=== PATIENT | female | born 1995 | race Caucasian/White ===

== ENCOUNTER 2019-09-14 18:19 | Emergency (ER) | payer SELFPAY ==
[~2019-09-14] VITALS: Ht 165.1 cm; Wt 96.0 kg
--- NOTE | 2019-09-14 18:22 | PHYS DOC ---
Past History Smoking: Non-smoker General Adult HPI: HPI: ".. I woke up with this painful, numb Lt arm.. it seems to be localized to my bicep muscle area...". " Its been there all day... 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 I don't really lift stuff... ".." I don't think I slept wrong... " Patient is a 24 year old female who presents with above hx and complaints left bicep pain. Patient describes the pain is somewhat numbing. Patient is right- hand dominant. Distal neurovascular intact in both hands and equal. Distal vibratory 128 equal in both hands. Discomfort is localized to bicep muscle group. No history of previous cardiac disorders. No history of cardiac disorders in her age group in her family. No specific history of trauma. Patient does not think she slept on it wrong. No history of coagulopathy with her family members. Patient has not had this symptom before. Patient does have deltoid sensation left shoulder which is equal to right shoulder. No history of recent travel outside [facility]. No history immunosuppression. Review of Systems: Review of Systems: Constitutional: Denies fever or chills Eyes: Denies change in visual acuity HENT: Denies nasal congestion or sore throat Respiratory: Denies cough or shortness of breath Cardiovascular: Denies chest pain or edema GI: Denies abdominal pain, nausea, vomiting, bloody stools or diarrhea : Denies dysuria Musculoskeletal: Denies back pain or joint pain Complaints of Lt bicep muscle pain and numbness Integument: Denies rash Neurologic: Denies headache, focal weakness or sensory changes Endocrine: Denies polyuria or polydipsia Lymphatic: Denies swollen glands Psychiatric: Denies depression or anxiety Heart Score: HEART Score for Chest Pain: HEART Score for Chest Pain Response (Comments) Value History Slighlty/Non-Suspicious 0 ECG Normal 0 Age < 45 0 Risk Factors No Risk Factors 0 Total 0 Risk Factors: Risk Factors: DM, Current or recent (<one month) smoker, HTN, HLP, family history of CAD, obesity. Risk Scores: Score 0 - 3: 2.5% MACE over next 6 weeks - Discharge Home Score 4 - 6: 20.3% MACE over next 6 weeks - Admit for Clinical Observation Score 7 - 10: 72.7% MACE over next 6 weeks - Early Invasive Strategies Family History: Family History: Noncontributory to presentation Current Medications: Current Meds: See nursing for home medications Allergies: Allergies: No known drug allergies Physical Exam: PE: Constitutional: , no acute distress, non-toxic appearance. [] HENT: Normocephalic, atraumatic, bilateral external ears normal, oropharynx moist, no oral exudates, nose normal. [] Eyes: PERRLA, EOMI, conjunctiva normal, no discharge. [] Neck: Normal range of motion, no tenderness, supple, no stridor. Than 17 inches circumference Cardiovascular: Tachycardia heart rate regular rhythm, no murmur [] Lungs & Thorax: Bilateral breath sounds equal at apex auscultation [] Abdomen: Bowel sounds normal, soft, no tenderness, no masses, no pulsatile masses. [Obese Skin: Warm, dry, no erythema, no rash. [] Back: No tenderness, no CVA tenderness. [] Extremities: No tenderness, no cyanosis, no clubbing, ROM intact, no edema. No cording appreciated. Neurologic: Alert and oriented X 3, normal motor function, normal sensory function, no focal deficits noted. Distal vibratory of 128 tuning fork equal in all limbs. Psychologic: Affect anxious , judgement normal, mood normal. [] EKG: EKG: My interpretation of EKG shows a sinus rhythm at 96 bpm. No findings of acute STEMI of contralateral changes. [] Radiology/Procedures: Radiology/Procedures: [][place] [id number] IMAGING REPORT Signed PATIENT: AJIT VIERA ACCOUNT: [id number] : 1995 LOCATION: ER AGE: 24 SEX: F EXAM STATUS: REG ER ORD. PHYSICIAN: ISMA ARANDA MD REASON: atypical chest pain, Lt. arm PROCEDURE: PORTABLE CHEST 1V PORTABLE CHEST 1V Clinical History: Reason: atypical chest pain, Lt. arm / Spl. Instructions: / History: Technique: AP view of the chest was obtained at 09/14/2019 6:47 PM. Comparison: None. Findings: The cardiomediastinal silhouette is normal. The pulmonary vasculature is normal. The lungs and pleural margins are clear. Impression: No evidence of an acute cardiopulmonary process. Electronically signed by: Trever Leal III, MD (09/14/2019 7:50 PM) [id number] DICTATED AND SIGNED BY: TREVER LEAL III, MD DATE: 09/14/191949 CC: ISMA ARANDA MD; PCP,NO ~ Course & Med Decision Making: Course & Med Decision Making Pertinent Labs and Imaging studies reviewed. (See chart for details) Take Tylenol and ibuprofen for pain. Ice packs as needed. Follow-up primary care. Return if any concerns. Impression: 1. Muscle skeletal pain 2. Mild Hypokalemia 3. Elevated AST 41/ Alt. 78 [] Dragon Disclaimer: Dragon Disclaimer: This electronic medical record was generated, in whole or in part, using a voice recognition dictation system. Departure Departure: Disposition: 01 HOME/RESIDENCE PRIOR TO ADM Condition: STABLE Referrals: PCP,NO (PCP) Dragon Disclaimer This chart was dictated in whole or in part using Voice Recognition software in a busy, high-work load, and often noisy Emergency Department environment. It may contain unintended and wholly unrecognized errors or omissions. Dragon Disclaimer This chart was dictated in whole or in part using Voice Recognition software in a busy, high-work load, and often noisy Emergency Department environment. It may contain unintended and wholly unrecognized errors or omissions. ISMA ARANDA MD Sep 14, 2019 18:22
[2019-09-14] MEDS ORDERED: IV RINGERS SOLUTION,LACTATED 1,000 ML IV SCH (18:47)
[2019-09-14] MEDS ORDERED: ASPIRIN CHEWABLE 81 MG TABLET. PO ONE (19:00)
[2019-09-14] MEDS ORDERED: ASPIRIN CHEWABLE 81 MG TABLET. ONE (19:35)
[2019-09-14 19:48] LABS: BASO % 0 % (0-3); EOS # 0.1 x10^3/uL (0.0-0.7); EOS % 1 % (0-3); HEMATOCRIT 38.9 % (36.0-47.0); HEMOGLOBIN 13.1 g/dL (12.0-15.5); LYMPH # 0.9 x10^3/uL (1.0-4.8); LYMPH % 10 % (24-48); MEAN CORPUSCULAR HEMOGLOBIN 33 pg (25-35); MEAN CORPUSCULAR HGB CONC 34 g/dL (31-37); MEAN CORPUSCULAR VOLUME 99 fL (79-100); MONO # 0.4 x10^3/uL (0.0-1.1); MONO % 5 % (0-9); NEUT # 7.5 x10^3uL (1.8-7.7); NEUT % 84 % (31-73); PLATELET COUNT 256 x10^3/uL (140-400); RED BLOOD COUNT 3.92 x10^6/uL (3.50-5.40); RED CELL DISTRIBUTION WIDTH 14.2 % (11.5-14.5)
--- NOTE | 2019-09-14 19:53 | RAD ---
PORTABLE CHEST 1V Clinical History: Reason: atypical chest pain, Lt. arm / Spl. Instructions: / History: Technique: AP view of the chest was obtained at 09/14/2019 6:47 PM. Comparison: None. Findings: The cardiomediastinal silhouette is normal. The pulmonary vasculature is normal. The lungs and pleural margins are clear. Impression: No evidence of an acute cardiopulmonary process. Electronically signed by: Trever Eastman III, MD (09/14/2019 7:50 PM) [id number]
[2019-09-14 19:54] LABS: BILIRUBIN,URINE NEG (NEG); CLARITY,URINE CLEAR; COLOR,URINE YELLOW; GLUCOSE,URINE NEG (NEG)
[2019-09-14 19:55] LABS: BARBITURATES NEG (NEG); BENZODIAZEPINES NEG (NEG); CANNABINOIDS NEG (NEG); COCAINE NEG (NEG); METHADONE NEG (NEG); NITRITE,URINE NEG (NEG); OPIATES NEG (NEG); PHENCYCLIDINE NEG (NEG); UROBILINOGEN,URINE 0.2 mg/dL (0.2 mg/dL)
[2019-09-14 19:57] LABS: BACTERIA,URINE FEW /HPF (0-FEW); SQUAMOUS EPITHELIAL CELL,UR FEW /LPF; WBC,URINE 0 /HPF (0-4)
[2019-09-14 19:58] LABS: CALCIUM 8.7 mg/dL (8.5-10.1); CREATININE 0.9 mg/dL (0.6-1.0); GFR 78.3; POTASSIUM 3.2 mmol/L (3.5-5.1)
[2019-09-14 19:59] LABS: RBC,URINE RARE /HPF (0-2)
[2019-09-14 20:01] LABS: AMPHETAMINE/METHAMPHETAMINE NEG (NEG)
[2019-09-14 20:10] LABS: ALBUMIN 4.3 g/dL (3.4-5.0); DIRECT BILIRUBIN 0.1 mg/dL (0.0-0.2); MAGNESIUM 1.8 mg/dL (1.8-2.4); TOTAL BILIRUBIN 0.4 mg/dL (0.2-1.0); TOTAL PROTEIN 8.3 g/dL (6.4-8.2)
[2019-09-14] MEDS ORDERED: KETOROLAC 30 MG/ML VIAL. IVP ONE (20:30)
[2019-09-14] MEDS ORDERED: POTASSIUM CHLORIDE 20 MEQ TABLET.ER. PO ONE ×2 (20:30→20:45)
[2019-09-14 20:45] VITALS: BP 159/78
[2019-09-14] MEDS ORDERED: KETOROLAC 30 MG/ML VIAL. ONE (20:45)
--- NOTE | 2019-09-15 06:45 | EKG ---
[address] [address] Test Date: 2019-09-14 Test Time: 18:53:58 Pat Name: AJIT VIERA Department: Room: Gender: F Ophthalmic Tech: : 1995 Requested By: ISMA ARANDA Order Number: [id number] Reading MD: Measurements Intervals [place] Rate: P: WI: QRS: QRSD: T: QT: QTc: Interpretive Statements
[2019-09-15 20:51] LABS: THYROID STIM HORMONE (TSH) 0.9 uIU/mL (0.358-3.740)
== END 2019-09-14 21:01 | disposition home or self-care (01) ==
LOC: ER 18:19
DX: M79.18 Myalgia, other site (principal); M25.512 Pain in left shoulder; E87.6 Hypokalemia; R74.8 Abnormal levels of other serum enzymes
CPT/HCPCS: 36415; 71045; 80048; 80061; 80076; 80307; 81001; 81025; 82550; 83735; 83880; 84443; 84484; 85025; 85379; 85610; 85730; 86705; 86709; 86803; 87340; 93005; 96374; 99285; J1885; J7120

== ENCOUNTER 2019-11-25 21:08 | Emergency (ER) | payer SELFPAY ==
[~2019-11-25] VITALS: Ht 165.1 cm; Wt 96.0 kg
[2019-11-25 21:22] VITALS: BP 135/71
[2019-11-25 21:58] LABS: BILIRUBIN,URINE NEG (NEG); CLARITY,URINE CLEAR; COLOR,URINE YELLOW; GLUCOSE,URINE NEG (NEG); NITRITE,URINE NEG (NEG); UROBILINOGEN,URINE 0.2 mg/dL (0.2 mg/dL)
[2019-11-25 21:59] LABS: BACTERIA,URINE 0 /HPF (0-FEW); SQUAMOUS EPITHELIAL CELL,UR OCC /LPF; WBC,URINE OCC /HPF (0-4)
--- NOTE | 2019-11-25 22:19 | PHYS DOC ---
Past History Past Medical History: No Pertinent History Past Surgical History: No Surgical History Smoking: Non-smoker Alcohol Use: None General Adult EDM: Chief Complaint: TEST HPI: HPI: Patient is a [age] year old [sex] who presents with [] Review of Systems: Review of Systems: Constitutional: Denies fever or chills Eyes: Denies change in visual acuity HENT: Denies nasal congestion or sore throat Respiratory: Denies cough or shortness of breath Cardiovascular: Denies chest pain or edema GI: Denies abdominal pain, nausea, vomiting, bloody stools or diarrhea : Denies dysuria Musculoskeletal: Denies back pain or joint pain Integument: Denies rash Neurologic: Denies headache, focal weakness or sensory changes Endocrine: Denies polyuria or polydipsia Lymphatic: Denies swollen glands Psychiatric: Denies depression or anxiety Heart Score: Risk Factors: Risk Factors: DM, Current or recent (<one month) smoker, HTN, HLP, family history of CAD, obesity. Risk Scores: Score 0 - 3: 2.5% MACE over next 6 weeks - Discharge Home Score 4 - 6: 20.3% MACE over next 6 weeks - Admit for Clinical Observation Score 7 - 10: 72.7% MACE over next 6 weeks - Early Invasive Strategies Physical Exam: PE: Constitutional: Well developed, well nourished, no acute distress, non-toxic appearance. [] HENT: Normocephalic, atraumatic, bilateral external ears normal, oropharynx moist, no oral exudates, nose normal. [] Eyes: PERRLA, EOMI, conjunctiva normal, no discharge. [] Neck: Normal range of motion, no tenderness, supple, no stridor. [] Cardiovascular:Heart rate regular rhythm, no murmur [] Lungs & Thorax: Bilateral breath sounds clear to auscultation [] Abdomen: Bowel sounds normal, soft, no tenderness, no masses, no pulsatile masses. [] Skin: Warm, dry, no erythema, no rash. [] Back: No tenderness, no CVA tenderness. [] Extremities: No tenderness, no cyanosis, no clubbing, ROM intact, no edema. [] Neurologic: Alert and oriented X 3, normal motor function, normal sensory function, no focal deficits noted. [] Psychologic: Affect normal, judgement normal, mood normal. [] Current Patient Data: Labs: Laboratory Tests Test 11/25/19 21:20 11/25/19 21:32 Urine Collection Type Unknown Urine Color Yellow Urine Clarity Clear Urine pH 6.0 Urine Specific [place] 1.025 Urine Protein Neg (NEG-TRACE) Urine Glucose (UA) Neg mg/dL (NEG) Urine Ketones (Stick) Neg mg/dL (NEG) Urine Blood Small (NEG) Urine Nitrite Neg (NEG) Urine Bilirubin Neg (NEG) Urine Urobilinogen Dipstick 0.2 mg/dL (0.2 mg/dL) Urine Leukocyte Esterase Neg (NEG) Urine RBC 6-10 /HPF (0-2) Urine WBC Occ /HPF (0-4) Urine Squamous Epithelial Cells Occ /LPF Urine Bacteria 0 /HPF (0-FEW) POC Urine HCG, Qualitative hcg negative (Negative) Vital Signs: Vital Signs Date Time Temp Pulse Resp B/P (MAP) Pulse Ox O2 Delivery O2 Flow Rate FiO2 11/25/19 21:22 98.1 87 20 135/71 (92) 98 Room Air EKG: EKG: [] Radiology/Procedures: Radiology/Procedures: [] Course & Med Decision Making: Course & Med Decision Making Pertinent Labs and Imaging studies reviewed. (See chart for details) [] Dragon Disclaimer: Dragon Disclaimer: This electronic medical record was generated, in whole or in part, using a voice recognition dictation system. Departure Departure: Impression: Primary Impression: Abdominal pain Qualified Codes: R10.9 - Unspecified abdominal pain Additional Impression: test negative Disposition: HOME/RESIDENCE PRIOR TO ADM Condition: STABLE Referrals: PCP,NO (PCP) Patient Instructions: Abdominal Pain (Nonspecific) Justification of Admission: Justification of Admission: Justification of Admission Dx: N/A INDIO BARRIOS DO Nov 25, 2019 22:19
== END 2019-11-25 22:30 | disposition home or self-care (01) ==
LOC: ER 21:08
DX: Z32.02 Encounter for pregnancy test, result negative (principal); R10.9 Unspecified abdominal pain
CPT/HCPCS: 81001; 81025; 99283

== ENCOUNTER 2020-01-27 09:00 | Emergency (ER) | payer SELFPAY ==
[~2020-01-27] VITALS: Ht 162.6 cm; Wt 95.9 kg
[2020-01-27 09:21] VITALS: BP 146/78
--- NOTE | 2020-01-27 09:27 | PHYS DOC ---
Past History Past Medical History: No Pertinent History Past Surgical History: No Surgical History Smoking: Non-smoker Alcohol Use: None Drug Use: None General Adult EDM: Chief Complaint: SORE THROAT HPI: HPI: 25-year-old female coming in for upper respiratory complaints. Says she is congested and having yellow rhinorrhea, complaining of sore throat and mild nausea. Denies cough, headaches, vomiting, diarrhea or fevers. Has not tried any uzyg-rku-cmrztoa medications prior to arrival. Denies history of seasonal allergies, has history of strep pharyngitis. Review of Systems: Review of Systems: Constitutional: Denies fever or chills Eyes: Denies change in visual acuity HENT: Nasal congestion and sore throat Respiratory: Denies cough or shortness of breath Cardiovascular: Denies chest pain or edema GI: Denies abdominal pain, vomiting, bloody stools or diarrhea : Denies dysuria Musculoskeletal: Denies back pain or joint pain Integument: Denies rash Neurologic: Denies headache, focal weakness or sensory changes Endocrine: Denies polyuria or polydipsia Lymphatic: Denies swollen glands Psychiatric: Denies depression or anxiety Heart Score: Risk Factors: Risk Factors: DM, Current or recent (<one month) smoker, HTN, HLP, family history of CAD, obesity. Risk Scores: Score 0 - 3: 2.5% MACE over next 6 weeks - Discharge Home Score 4 - 6: 20.3% MACE over next 6 weeks - Admit for Clinical Observation Score 7 - 10: 72.7% MACE over next 6 weeks - Early Invasive Strategies Allergies: Allergies: Allergies Coded Allergies Type Severity Reaction Last Updated Verified No Known Drug Allergies 01/27/20 No Physical Exam: PE: Constitutional: Well developed, well nourished, no acute distress, non-toxic appearance. [] HENT: Normocephalic, atraumatic, bilateral external ears normal, oropharynx moist, no oral exudates, nose normal. [] Eyes: PERRLA, EOMI, conjunctiva normal, no discharge. [] Neck: Normal range of motion, no tenderness, supple, no stridor. [] Cardiovascular:Heart rate regular rhythm, no murmur [] Lungs & Thorax: Bilateral breath sounds clear to auscultation [] Abdomen: Bowel sounds normal, soft, no tenderness, no masses, no pulsatile masses. [] Skin: Warm, dry, no erythema, no rash. [] Back: No tenderness, no CVA tenderness. [] Extremities: No tenderness, no cyanosis, no clubbing, ROM intact, no edema. [] Neurologic: Alert and oriented X 3, normal motor function, normal sensory function, no focal deficits noted. [] Psychologic: Affect normal, judgement normal, mood normal. [] EKG: EKG: [] Radiology/Procedures: Radiology/Procedures: [] Course & Med Decision Making: Course & Med Decision Making Pertinent Labs and Imaging studies reviewed. (See chart for details) [] Dragon Disclaimer: Dragon Disclaimer: This electronic medical record was generated, in whole or in part, using a voice recognition dictation system. Departure Departure: Disposition: 01 DC HOME SELF CARE/HOMELESS Condition: STABLE Referrals: PCP,NO (PCP) Patient Instructions: Upper Respiratory Infection, Adult, [id number] Additional Instructions: Treat with ueqo-lxw-echyrif decongestants and cold medications such as Mucinex and increase water intake. Scripts Azelastine Hcl (AZELASTINE HCL) 137 Mcg/0.137 Ml [place].pump 2 SPR NS BID for congestion for 30 Days, #30 ML 0 Refills Prov: CHRISTINE AMBROCIO MD 01/27/20 CHRISTINE AMBROCIO MD Jan 27, 2020 09:27
[2020-01-27] MEDS ORDERED: AZEL137S3 NS (09:41)
== END 2020-01-27 09:57 | disposition home or self-care (01) ==
LOC: ER 09:00
DX: J02.9 Acute pharyngitis, unspecified (principal); R09.81 Nasal congestion; R09.89 Other specified symptoms and signs involving the circulatory and respiratory systems; R11.0 Nausea
CPT/HCPCS: 87070; 87880; 99283

== ENCOUNTER 2020-06-12 07:59 | Emergency (ER) | payer SELFPAY ==
[~2020-06-12] VITALS: Ht 165.1 cm; Wt 98.5 kg
[~2020-06-12 07:59] MED LIST: AZEL137S3 NS
--- NOTE | 2020-06-12 08:50 | PHYS DOC ---
Past History Past Medical History: No Pertinent History Past Surgical History: No Surgical History Smoking: Non-smoker Alcohol Use: None Drug Use: None General Adult EDM: Chief Complaint: ABDOMINAL PAIN HPI: HPI: Patient is a 25-year-old female complaining of rectal and low abdominal pain. Patient states it happened about 2 or 3 days ago while she was sitting. Patient denies any history of straining with bowel movements but says she has had to since. Denies any blood. Also has been having yellowish vaginal discharge. Denies any dysuria, hematuria, dyspareunia, nausea, or vomiting. Patient states she usually has regular periods with her last menstrual cycle was over a month ago. Patient denies any recent illness, fevers, unintentional weight loss, appetite changes. Requesting to be tested for STDs. Review of Systems: Review of Systems: All other systems within normal limits except for as noted in the HPI Allergies: Allergies: Allergies Coded Allergies Type Severity Reaction Last Updated Verified No Known Drug Allergies 01/27/20 No Physical Exam: PE: Constitutional: Well developed, well nourished, no acute distress, non-toxic appearance. [] HENT: Normocephalic, atraumatic, bilateral external ears normal, nose normal. [] Eyes: PERRLA, conjunctiva normal, no discharge. [] Neck: No rigidity, supple, no stridor. [] Cardiovascular: Regular rate and rhythm, brisk cap refill [] Lungs & Thorax: Non labored symmetric respirations, no tachypnea or respiratory distress [] Abdomen: Soft, nondistended, no abdominal tenderness : Normal external vaginal exam, moderate amount of yellow discharge, cervix unremarkable. Rectal exam no bleeding or open wounds, 1 nonthrombosed external hemorrhoid. Skin: Warm, dry, no erythema, no rash. [] Back: Unremarkable Extremities: No deformities, range of motion grossly intact, no lower extremity edema [] Neurologic: Alert and oriented X 3, no focal deficits noted. [] Psychologic: Affect normal, judgement normal, mood normal. [] Current Patient Data: Labs: Laboratory Tests Test 06/12/20 08:27 POC Urine HCG, Qualitative hcg negative (Negative) Vital Signs: Vital Signs Date Time Temp Pulse Resp B/P (MAP) Pulse Ox O2 Delivery O2 Flow Rate FiO2 06/12/20 08:20 98.1 92 16 144/73 (96) 98 Room Air EKG: EKG: [] Radiology/Procedures: Radiology/Procedures: CT ABDOMEN+PELVIS W History: low abd pain Comparison: None. Technique: After administration of intravenous contrast, helical CT of the abdomen and pelvis was performed from the lung bases through the ischial tuberosities. Coronal and sagittal reconstructions were obtained. 75 mL of Omnipaque 300 were used. One or more of the following dose reduction techniques were utilized: Automated exposure control (AEC), Adjustment of mA and/or kV according to patient size, Use of iterative reconstruction technique such as ASiR, CT scan done according to ALARA and image gently/image wisely Abdomen Findings: The visualized lung bases are clear. The liver, pancreas, spleen, and bilateral adrenal glands are normal. Cholelithiasis. Symmetric renal enhancement. There is no focal renal mass. There is no hydronephrosis. The visualized loops of small bowel are normal. The visualized loops of large martínez wel are normal. There is no evidence of bowel obstruction. Appendix is normal. There is no free fluid. There is no mesenteric or retroperitoneal adenopathy. The abdominal aorta is normal in caliber. Pelvis Findings: Urinary bladder is normal. Uterus and ovaries are present. Probable right adnexal corpus luteal cyst. No pelvic free fluid. There is no pelvic or inguinal adenopathy. There is no acute bony abnormality. IMPRESSION: 1. No acute findings. 2. Cholelithiasis.[] Heart Score: Risk Factors: Risk Factors: DM, Current or recent (<one month) smoker, HTN, HLP, family history of CAD, obesity. Risk Scores: Score 0 - 3: 2.5% MACE over next 6 weeks - Discharge Home Score 4 - 6: 20.3% MACE over next 6 weeks - Admit for Clinical Observation Score 7 - 10: 72.7% MACE over next 6 weeks - Early Invasive Strategies Course & Med Decision Making: Course & Med Decision Making Pertinent Labs and Imaging studies reviewed. (See chart for details) Wet prep negative for yeast, trichomonas, clue cells. Few RBCs and many white blood cells present [] Dragon Disclaimer: Dragon Disclaimer: This electronic medical record was generated, in whole or in part, using a voice recognition dictation system. Departure Departure: Impression: Primary Impression: Hemorrhoid Additional Impression: Concern about STD in female without diagnosis Disposition: 01 DC HOME SELF CARE/HOMELESS Condition: STABLE Referrals: PCP,NO (PCP) Patient Instructions: Hemorrhoids Additional Instructions: Refrain from sexual activity until STD test results return. Use stool softeners and [id number] Tucks medicated pads for hemorrhoids and rectal pain. [facility] for primary care follow-up Address: [address] [place] [id number] CHRISTINE AMBROCIO MD Jun 12, 2020 08:50
[2020-06-12 09:35] LABS: BASO % 0 % (0-3); EOS # 0.1 x10^3/uL (0.0-0.7); EOS % 1 % (0-3); HEMATOCRIT 37.8 % (36.0-47.0); HEMOGLOBIN 12.5 g/dL (12.0-15.5); LYMPH # 1.8 x10^3/uL (1.0-4.8); LYMPH % 24 % (24-48); MEAN CORPUSCULAR HEMOGLOBIN 32 pg (25-35); MEAN CORPUSCULAR HGB CONC 33 g/dL (31-37); MEAN CORPUSCULAR VOLUME 96 fL (79-100); MONO # 0.5 x10^3/uL (0.0-1.1); MONO % 7 % (0-9); NEUT # 5.1 x10^3uL (1.8-7.7); NEUT % 68 % (31-73); PLATELET COUNT 261 x10^3/uL (140-400); RED BLOOD COUNT 3.93 x10^6/uL (3.50-5.40); RED CELL DISTRIBUTION WIDTH 13.9 % (11.5-14.5); WHITE BLOOD COUNT 7.5 x10^3/uL (4.0-11.0)
[2020-06-12 09:42] LABS: LIPASE 101 U/L (73-393)
[2020-06-12 10:06] LABS: BACTERIA,URINE 0 /HPF (0-FEW); BILIRUBIN,URINE NEG (NEG); CLARITY,URINE HAZY; COLOR,URINE YELLOW; GLUCOSE,URINE NEG (NEG); NITRITE,URINE NEG (NEG); SQUAMOUS EPITHELIAL CELL,UR MANY /LPF; UROBILINOGEN,URINE 0.2 mg/dL (0.2 mg/dL); WBC,URINE 20-40 /HPF (0-4)
[2020-06-12] MEDS ORDERED: IOHEXOL 300 MG/ML 75 ML VIAL. IV ONE (10:15)
--- NOTE | 2020-06-12 11:02 | RAD ---
CT ABDOMEN+PELVIS W History: low abd pain Comparison: None. Technique: After administration of intravenous contrast, helical CT of the abdomen and pelvis was per formed from the lung bases through the ischial tuberosities. Coronal and sagittal reconstructions wer e obtained. 75 mL of Omnipaque 300 were used. One or more of the following dose reduction techniques were utilized: Automated exposure control (AEC), Adjustment of mA and/or kV according to patient size , Use of iterative reconstruction technique such as ASiR, CT scan done according to ALARA and image g ently/image wisely Abdomen Findings: The visualized lung bases are clear. The liver, pancreas, spleen, and bilateral adrenal glands are normal. Cholelithiasis. Symmetric renal enhancement. There is no focal renal mass. There is no hydronephrosis. The visualized loops of small bowel are normal. The visualized loops of large bowel are normal. There is no evidence of bowel obstruction. Appendix is normal. There is no free fluid. There is no mesenteric or retroperitoneal adenopathy. The abdominal aorta is normal in caliber. Pelvis Findings: Urinary bladder is normal. Uterus and ovaries are present. Probable right adnexal corpus luteal cyst. No pelvic free fluid. There is no pelvic or inguinal adenopathy. There is no acute bony abnormality. IMPRESSION: 1. No acute findings. 2. Cholelithiasis. Electronically signed by: Yunior Jensen MD (06/12/2020 11:00 AM) [id number]
[2020-06-12 11:43] VITALS: BP 121/73
[2020-06-13 20:37] LABS: CHLAMYDIA PROBE Negative (Negative)
== END 2020-06-12 11:58 | disposition home or self-care (01) ==
LOC: ER 07:59
DX: K64.8 Other hemorrhoids (principal); R10.30 Lower abdominal pain, unspecified; Z20.2 Contact with and (suspected) exposure to infections with a predominantly sexual mode of transmission
CPT/HCPCS: 36415; 74177; 81001; 81025; 82550; 83690; 85025; 86592; 86703; 87086; 87147; 87491; 87591; 99285; Q0111; Q9967

== ENCOUNTER 2021-01-27 00:31 | Emergency (ER) | payer SELFPAY ==
[~2021-01-27] VITALS: Ht 165.1 cm; Wt 103.6 kg
[2021-01-27 00:45] VITALS: BP 131/71
[2021-01-27 01:05] LABS: U PREG PATIENT NEGATIVE (NEG)
--- NOTE | 2021-01-27 01:06 | PHYS DOC ---
Past History Past Medical History: No Pertinent History Past Surgical History: No Surgical History Smoking: Non-smoker Alcohol Use: None Drug Use: None General Adult EDM: Chief Complaint: CONGESTION HPI: HPI: 26-year-old female presents with 2-day history of nasal congestion and sore throat. She was exposed to a sick contact that was positive for RSV but negative for Covid-19. She has had thick nasal drainage, but no fever or chills. She has been eating and drinking normally. She has some postnasal drip. She has no other specific complaints. She is concerned about COVID-19. She is not vaccinated. Review of Systems: Review of Systems: Constitutional: Denies fever or chills Eyes: Denies change in visual acuity HENT: Nasal congestion and mild sore throat Respiratory: Denies cough or shortness of breath Cardiovascular: Denies chest pain or edema GI: Denies abdominal pain, nausea, vomiting, bloody stools or diarrhea : Denies dysuria Musculoskeletal: Denies back pain or joint pain Integument: Denies rash Neurologic: Denies headache, focal weakness or sensory changes Endocrine: Denies polyuria or polydipsia Lymphatic: Denies swollen glands Psychiatric: Denies depression or anxiety Allergies: Allergies: Allergies Coded Allergies Type Severity Reaction Last Updated Verified No Known Drug Allergies 01/27/21 No Physical Exam: PE: Constitutional: Well developed, well nourished, obese, no acute distress, non- toxic appearance. [] HENT: Normocephalic, atraumatic, bilateral external ears normal, oropharynx moist without tonsillar exudates, nose congested [] Eyes: PERRLA, EOMI, conjunctiva normal, no discharge. [] Neck: Normal range of motion, no tenderness, supple, no stridor. [] Cardiovascular: Heart rate regular rhythm, no murmur [] Lungs & Thorax: Bilateral breath sounds clear to auscultation [] Abdomen: Bowel sounds normal, soft, no tenderness, no masses, no pulsatile masses. [] Skin: Warm, dry, no erythema, no rash. [] Back: No tenderness, no CVA tenderness. [] Extremities: No tenderness, no cyanosis, no clubbing, ROM intact, no edema. [] Neurologic: Alert and oriented X 3, normal motor function, normal sensory function, no focal deficits noted. [] Psychologic: Affect normal, judgement normal, mood normal. [] Current Patient Data: Vital Signs: Vital Signs Date Time Temp Pulse Resp B/P (MAP) Pulse Ox O2 Delivery O2 Flow Rate FiO2 01/27/21 00:45 98.1 93 20 131/71 (91) 97 Room Air EKG: EKG: [] Radiology/Procedures: Radiology/Procedures: [] Heart Score: C/O Chest Pain: N/A Risk Factors: Risk Factors: DM, Current or recent (<one month) smoker, HTN, HLP, family history of CAD, obesity. Risk Scores: Score 0 - 3: 2.5% MACE over next 6 weeks - Discharge Home Score 4 - 6: 20.3% MACE over next 6 weeks - Admit for Clinical Observation Score 7 - 10: 72.7% MACE over next 6 weeks - Early Invasive Strategies Course & Med Decision Making: Course & Med Decision Making Pertinent Labs and Imaging studies reviewed. (See chart for details) We have tested the patient for COVID-19. This appears to be a viral illness of some type. I recommended that she stay isolated until she feels better. She should at least stay away from people until she gets her Covid results. I have advised supportive care for congestion such as Afrin or Mucinex. She is stable for discharge at this time. [] Keanu Disclaimer: Keanu Disclaimer: This electronic medical record was generated, in whole or in part, using a voice recognition dictation system. Departure Departure: Impression: Primary Impression: Nasal congestion Additional Impression: Viral syndrome Disposition: HOME / SELF CARE / HOMELESS Condition: STABLE Referrals: PCP,NO (PCP) Patient Instructions: Viral Syndrome SANDY ELMORE DO Jan 27, 2021 01:06
[2021-01-27 01:07] LABS: BILIRUBIN,URINE NEG (NEG); CLARITY,URINE CLEAR; COLOR,URINE YELLOW; GLUCOSE,URINE NEG (NEG); NITRITE,URINE NEG (NEG); UROBILINOGEN,URINE 0.2 mg/dL (0.2 mg/dL)
[2021-01-27 01:09] LABS: RBC,URINE RARE /HPF (0-2); WBC,URINE RARE /HPF (0-4)
[2021-01-27 01:10] LABS: BACTERIA,URINE 0 /HPF (0-FEW); SQUAMOUS EPITHELIAL CELL,UR FEW /LPF
== END 2021-01-27 01:27 | disposition home or self-care (01) ==
LOC: ER 00:31
DX: B34.9 Viral infection, unspecified (principal); Z20.822 Contact with and (suspected) exposure to COVID-19
CPT/HCPCS: 81001; 81025; 99283; C9803; U0003

== ENCOUNTER 2021-02-26 01:07 | Emergency (ER) | payer SELFPAY ==
[~2021-02-26] VITALS: Ht 165.1 cm; Wt 115.0 kg
[2021-02-26 01:07] VITALS: BP 136/70
--- NOTE | 2021-02-26 01:24 | PHYS DOC ---
Past History Past Medical History: No Pertinent History Past Surgical History: Tonsillectomy Smoking: Non-smoker Alcohol Use: None Drug Use: None General Adult EDM: Chief Complaint: SHORTNESS OF BREATH HPI: HPI: ".. I got COVID.. I tested + on wednesday... everyone in the house has COVID.,. I was to busy to get my vaccination.. now I really wish I had.. I feel terrible.. " .. " Hurt everywhere..." Patient is a 26 year old female who presents with hx of COVID + as of Wednesday02/21/2021. Patient complaining of increased dyspnea, myalgia, arthralgia, malaise, fever, chills, and coughing. Patient states every single person in the household has a positive Covid test nephews, aunt, mother, children... All have Covid. No one has gotten Covid vaccination. No recent travel. No specific past medical history other than seizures which have not reoccurred for a number of years. Patient has been running a fever but has not taken any Tylenol or ibuprofen. Patient states she is gotten more short of breath tonight. Patient was on control but pulled out her IUD. No history of coagulopathy with her family members. Review of Systems: Review of Systems: Constitutional: Complains of fever or chills Eyes: Denies change in visual acuity HENT: Denies nasal congestion or sore throat Respiratory: Complains of cough and shortness of breath Cardiovascular: Denies chest pain or edema GI: Denies abdominal pain, nausea, vomiting, bloody stools or diarrhea : Denies dysuria Musculoskeletal: Complains of generalized myalgia and arthralgia Integument: Denies rash Neurologic: Denies headache, focal weakness or sensory changes Endocrine: Denies polyuria or polydipsia Lymphatic: Denies swollen glands Psychiatric: Denies depression or anxiety Family History: Family History: Multiple family members in the household have become Covid positive-no one has been vaccinated Current Medications: Current Meds: See nursing for home meds Allergies: Allergies: Allergies Coded Allergies Type Severity Reaction Last Updated Verified No Known Drug Allergies 01/27/21 No Physical Exam: PE: Constitutional: Reports acute distress, non-toxic appearance. [] HENT: Normocephalic, atraumatic, bilateral external ears normal, oropharynx moist, no oral exudates, nose swollen turbinates and clear rhinorrhea. Postnasal drainage. Eyes: PERRLA, EOMI, conjunctiva normal, no discharge. [] Neck: Normal range of motion, no tenderness, supple, no stridor. [] Cardiovascular: Tachycardia heart rate regular rhythm, no murmur [] Lungs & Thorax: Bilateral breath sounds to apex with few scattered wheezes on auscultation [] Abdomen: Bowel sounds normal, soft, no tenderness, no masses, no pulsatile masses. Obese. Skin: Warm, dry, no erythema, no rash. [] Back: No tenderness, no CVA tenderness. [] Extremities: Generalized muscle tenderness, no cyanosis, no clubbing, ROM intact, trace ankle edema. [] Neurologic: Alert and oriented X 3, normal motor function, normal sensory function, no focal deficits noted. [] Psychologic: Affect anxious, judgement normal, mood normal. [] EKG: EKG: My interpretation EKG shows a sinus tachycardia 113 bpm. No findings acute STEMI with contralateral changes. Time of EKG is 143 hours [] Radiology/Procedures: Radiology/Procedures: [place] [address] IMAGING REPORT Signed PATIENT: AJIT VIERA ACCOUNT: [id number] : 1995 LOCATION: ER AGE: 26 SEX: F EXAM STATUS: REG ER ORD. PHYSICIAN: ISMA ARANDA MD REASON: dyspnea PROCEDURE: PORTABLE CHEST 1V XR CHEST 1V Clinical History: Reason: dyspnea / Spl. Instructions: COVID + Wednesday / History: Technique: AP view of the chest was obtained at 02/26/2021 1:32 AM. Comparison: September 14, 2019. Findings: The cardiomediastinal silhouette is normal. The pulmonary vasculature is normal. There are calcified granuloma on the right. There is vague peripheral patchy opacities bilaterally. Impression: Minimal pulmonary infiltrates could be early atypical pneumonia. Electronically signed by: Kirby Leal III, MD (02/26/2021 1:54 AM) [facility] DICTATED AND SIGNED BY: KIRBY LEAL III, MD DATE: 02/26/21152 CC: ISMA ARANDA MD; PCP,NO ~MTH0 0 [][place] [address] IMAGING REPORT Signed PATIENT: AJIT VIERA ACCOUNT: [id number] : 1995 LOCATION: ER AGE: 26 SEX: F EXAM STATUS: REG ER ORD. PHYSICIAN: ISMA ARANDA MD REASON: COVID + Jacoby, short of air, cough Omni 350 100cc PROCEDURE: CT ANGIOGRAPHY CHEST CTA Chest with contrast: Clinical History: Reason: COVID + Jacoby, short of air, cough Omni 350 100cc / Spl. Instructions: / History: Shortness of breath. Axial helical images of the chest were obtained after the administration of 100 cc of IV Isovue-370 and timed appropriately for a pulmonary arterial study. Conventional axial reconstruction was performed in addition to coronal, sagittal and bilateral oblique MIP (maximum intensity projection). This study was ordered to detect possible pulmonary embolism. There are no filling defects to suggest pulmonary embolism. There is patchy groundglass opacities in the periphery of the lungs bilaterally. There is multiple small hilar and mediastinal lymph nodes. There is no mediastinal or hilar lymphadenopathy. The thoracic aorta appears normal. Impression: 1. No evidence of pulmonary embolism. 2. Moderate bilateral pulmonary infiltrates likely Covid pneumonia. 3. Mild lymphadenopathy likely reactive. End impression PQRS Compliance Statement: One or more of the following individualized dose reduction techniques were utilized for this examination: 1. Automated exposure control 2. Adjustment of the mA and/or kV according to patient size 3. Use of iterative reconstruction technique Electronically signed by: Kirby Leal III, MD (02/26/2021 2:26 AM) [facility] DICTATED AND SIGNED BY: KIRBY LEAL III, MD DATE: 02/26/21223 CC: ISMA ARANDA MD; PCP,NO ~MTH0 0 Heart Score: C/O Chest Pain: N/A HEART Score for Chest Pain: HEART Score for Chest Pain Response (Comments) Value History Slighlty/Non-Suspicious 0 ECG Normal 0 Age < 45 0 Risk Factors No Risk Factors 0 Troponin < Normal Limit 0 Total 0 Risk Factors: Risk Factors: DM, Current or recent (<one month) smoker, HTN, HLP, family history of CAD, obesity. Risk Scores: Score 0 - 3: 2.5% MACE over next 6 weeks - Discharge Home Score 4 - 6: 20.3% MACE over next 6 weeks - Admit for Clinical Observation Score 7 - 10: 72.7% MACE over next 6 weeks - Early Invasive Strategies Course & Med Decision Making: Course & Med Decision Making Pertinent Labs and Imaging studies reviewed. (See chart for details) Pt. to self isolate. Wear mask when around others that covers your nose and mouth. Must push fluids. Take tylenol and ibuprofen for discomfort. Use MDI two puffs four times a day. Follow up with primary. Return if any concerns. Take Zithromax 250 day day. Take Eliquis 10 mg twice a day. Follow up with primary. Consider US of legs out pt. for DVT development. On follow up with primary discuss if they want to continue the Eliquis after 7 days. Call in AM if elects to complete US legs for DVT. Scheduled after 0800 Impression: 1. COVID =+ 02/21/2021 - No vaccination 2. Viral Syndrome 3. Hypokalemia 3.2 4. Dehydration 5. Elevated AST 115, and ALT 75 6. Elevated CK = 3943 7. Elevated D- Dimer 1.05 8. Covid Pneumonia [] Dragon Disclaimer: Dragon Disclaimer: This electronic medical record was generated, in whole or in part, using a voice recognition dictation system. Departure Departure: Referrals: PCP,NO (PCP) Scripts Apixaban (ELIQUIS) 5 Mg Tablet 10 MG PO twice a day for DVT for 7 Days, TAB Prov: ISMA ARANDA MD 02/26/21 Azithromycin (ZITHROMAX) 250 Mg Tablet 250 MG PO DAILY for ANTI-BIOTIC for 5 Days, #5 TAB 0 Refills Prov: ISMA ARANDA MD 02/26/21 [place] Disclaimer This chart was dictated in whole or in part using Voice Recognition software in a busy, high-work load, and often noisy Emergency Department environment. It may contain unintended and wholly unrecognized errors or omissions. ISMA ARANDA MD Feb 26, 2021 01:23
[2021-02-26] MEDS ORDERED: IV RINGERS SOLUTION,LACTATED 1,000 ML IV SCH (01:30)
[2021-02-26] MEDS ORDERED: ALBUTEROL SULFATE 8GM INHALER. INH ONE (01:30)
[2021-02-26] MEDS ORDERED: ACETAMINOPHEN 500 MG TABLET PO ONE (01:30)
[2021-02-26] MEDS ORDERED: ENOXAPARIN ** NOTE DOSE ** SYRINGE SQ ONE (01:30)
--- NOTE | 2021-02-26 01:57 | RAD ---
XR CHEST 1V Clinical History: Reason: dyspnea / Spl. Instructions: COVID + Wednesday / History: Technique: AP view of the chest was obtained at 02/26/2021 1:32 AM. Comparison: September 14, 2019. Findings: The cardiomediastinal silhouette is normal. The pulmonary vasculature is normal. There are calcified granuloma on the right. There is vague peripheral patchy opacities bilaterally. Impression: Minimal pulmonary infiltrates could be early atypical pneumonia. Electronically signed by: Trever Eastman III, MD (02/26/2021 1:54 AM) [facility]
[2021-02-26] MEDS ORDERED: CONTRAST GIVEN. MC PRN (02:00)
[2021-02-26] MEDS ORDERED: IOHEXOL 350 MG/ML 100 ML VIAL. IV ONE (02:00)
[2021-02-26 02:15] LABS: BASO % 0 % (0-3); EOS % 0 % (0-3); HEMATOCRIT 39.4 % (36.0-47.0); HEMOGLOBIN 13.2 g/dL (12.0-15.5); LYMPH # 0.9 x10^3/uL (1.0-4.8); LYMPH % 23 % (24-48); MEAN CORPUSCULAR HEMOGLOBIN 31 pg (25-35); MEAN CORPUSCULAR HGB CONC 34 g/dL (31-37); MEAN CORPUSCULAR VOLUME 94 fL (79-100); MONO # 0.2 x10^3/uL (0.0-1.1); MONO % 5 % (0-9); NEUT % 72 % (31-73); PLATELET COUNT 156 x10^3/uL (140-400); RED BLOOD COUNT 4.19 x10^6/uL (3.50-5.40); RED CELL DISTRIBUTION WIDTH 13.6 % (11.5-14.5); WHITE BLOOD COUNT 4.1 x10^3/uL (4.0-11.0)
[2021-02-26 02:25] LABS: CALCIUM 8.3 mg/dL (8.5-10.1); CREATININE 0.9 mg/dL (0.6-1.0); GFR 76.9; POTASSIUM 3.2 mmol/L (3.5-5.1)
--- NOTE | 2021-02-26 02:29 | RAD ---
CTA Chest with contrast: Clinical History: Reason: COVID + Wednesday, short of air, cough Omni 350 100cc / Spl. Instructions: / History: Shortness of breath. Axial helical images of the chest were obtained after the administration of 100 cc of IV Isovue-370 a nd timed appropriately for a pulmonary arterial study. Conventional axial reconstruction was perform ed in addition to coronal, sagittal and bilateral oblique MIP (maximum intensity projection). This s tudy was ordered to detect possible pulmonary embolism. There are no filling defects to suggest pulmonary embolism. There is patchy groundglass opacities in the periphery of the lungs bilaterally. There is multiple small hilar and mediastinal lymph nodes. There is no mediastinal or hilar lymphadenopathy. The thoracic aorta appears normal. Impression: 1. No evidence of pulmonary embolism. 2. Moderate bilateral pulmonary infiltrates likely Covid pneumonia. 3. Mild lymphadenopathy likely reactive. End impression PQRS Compliance Statement: One or more of the following individualized dose reduction techniques were utilized for this examinat ion: 1. Automated exposure control 2. Adjustment of the mA and/or kV according to patient size 3. Use of iterative reconstruction technique Electronically signed by: Trever Eastman III, MD (02/26/2021 2:26 AM) [facility]
[2021-02-26 02:40] LABS: ALBUMIN 3.8 g/dL (3.4-5.0); DIRECT BILIRUBIN 0.2 mg/dL (0.0-0.2); MAGNESIUM 2.1 mg/dL (1.8-2.4); TOTAL BILIRUBIN 0.4 mg/dL (0.2-1.0); TOTAL PROTEIN 7.7 g/dL (6.4-8.2)
[2021-02-26 03:03] LABS: BILIRUBIN,URINE NEG (NEG); CLARITY,URINE CLEAR; COLOR,URINE YELLOW; GLUCOSE,URINE NEG (NEG); NITRITE,URINE NEG (NEG); UROBILINOGEN,URINE 0.2 mg/dL (0.2 mg/dL)
[2021-02-26 03:04] LABS: BACTERIA,URINE 0 /HPF (0-FEW); BARBITURATES NEG (NEG); BENZODIAZEPINES NEG (NEG); CANNABINOIDS NEG (NEG); COCAINE NEG (NEG); METHADONE NEG (NEG); OPIATES NEG (NEG); PHENCYCLIDINE NEG (NEG); RBC,URINE OCC /HPF (0-2); SQUAMOUS EPITHELIAL CELL,UR MOD /LPF; WBC,URINE OCC /HPF (0-4)
[2021-02-26 03:05] LABS: AMPHETAMINE/METHAMPHETAMINE NEG (NEG)
[2021-02-26] MEDS ORDERED: AZITHROMYCIN 250 MG TABLET. PO ONE (03:15)
[2021-02-26] MEDS ORDERED: AZIT250T PO (03:18)
[2021-02-26] MEDS ORDERED: APIX5TAB3 PO (03:18)
--- NOTE | 2021-02-26 07:39 | EKG ---
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
== END 2021-02-26 03:49 | disposition home or self-care (01) ==
LOC: ER 01:07
DX: U07.1 COVID-19 (principal); J12.89 Other viral pneumonia; B34.9 Viral infection, unspecified; E87.6 Hypokalemia; E86.0 Dehydration; R79.89 Other specified abnormal findings of blood chemistry; R79.1 Abnormal coagulation profile; R74.8 Abnormal levels of other serum enzymes
CPT/HCPCS: 36415; 71045; 71275; 80048; 80076; 80307; 81001; 82550; 83735; 83880; 84484; 85025; 85379; 85610; 85730; 93005; 94640; 96360; 96361; 96372; 99285; J1650; J7120; Q9967; 94664

== ENCOUNTER 2021-04-06 08:21 | Emergency (ER) | payer SELFPAY ==
[~2021-04-06] VITALS: Ht 165.1 cm; Wt 102.3 kg
[~2021-04-06 08:21] MED LIST changes: +APIX5TAB3 PO; +AZIT250T PO
--- NOTE | 2021-04-06 08:32 | PHYS DOC ---
Past History Past Medical History: No Pertinent History Past Surgical History: Tonsillectomy Smoking: Non-smoker Alcohol Use: None Drug Use: None Adult General Chief Complaint Chief Complaint: ABDOMINAL PAIN HPI HPI Patient is a 26-year-old female presenting for abdominal pain. This is an acute on chronic problem. Reports she has had chronic abdominal pain for several years but reports it worsened yesterday evening. States it is generalized and focal to left upper quadrant and epigastric areas. Described as cramping. Nothing known makes better or worse. Timing of symptoms was inconsistent but reports has been more chronic this morning prompting her to come in for evaluation. She has no known medical issues, takes no medications on a daily basis, denies any tobacco alcohol or illicit drug abuse. She does admit she was seen here previously and had incidental finding of gallstones per CT imaging. She has been passing gas, last bowel movement was yesterday evening and unremarkable with no concerning changes and typical consistency, no dysuria. She does not have abdominal pain presently Review of Systems Review of Systems Fourteen body systems of review of systems have been reviewed. See HPI for pertinent positives and negative responses, other garay all other systems are negative, non-pertinent or non-contributory Allergies Allergies Allergies Coded Allergies Type Severity Reaction Last Updated Verified No Known Drug Allergies 01/27/21 No Physical Exam Physical Exam Constitutional: Well developed, well nourished, no acute distress, non-toxic appearance. HENT: Normocephalic, atraumatic, bilateral external ears normal, oropharynx moist, no oral exudates, nose normal. Eyes: PERRLA, EOMI, conjunctiva normal, no discharge. Neck: Normal range of motion, no tenderness, supple, no stridor. Cardiovascular: Heart rate regular, sinus rhythm, no murmurs rubs or gallops Lungs & Thorax: Bilateral breath sounds clear to auscultation Abdomen: Bowel sounds normal, soft, no tenderness, no masses, no pulsatile masses. Nonsurgical abdomen, no peritoneal signs Skin: Warm, dry, no erythema, no rash. Back: No tenderness, no CVA tenderness. Extremities: No tenderness, no cyanosis, no clubbing, ROM intact, no edema. Neurologic: Alert and oriented X 3, grossly normal motor & sensory function, no focal deficits noted. Psychologic: Affect normal, judgement normal, mood normal. Current Patient Data Vital Signs Vital Signs Date Time Temp Pulse Resp B/P (MAP) Pulse Ox O2 Delivery O2 Flow Rate FiO2 04/06/21 08:56 95 18 153/87 (109) 98 Vital Signs Date Time Temp Pulse Resp B/P (MAP) Pulse Ox O2 Delivery O2 Flow Rate FiO2 04/06/21 08:56 95 18 153/87 (109) 98 Lab Results Laboratory Tests Test 04/06/21 09:15 04/06/21 09:22 Urine Collection Type Unknown Urine Color Yellow Urine Clarity Clear Urine pH 6.0 Urine Specific [place] 1.025 Urine Protein Neg Urine Glucose (UA) Neg mg/dL Urine Ketones (Stick) Neg mg/dL Urine Blood Trace Urine Nitrite Neg Urine Bilirubin Neg Urine Urobilinogen Dipstick 0.2 mg/dL Urine Leukocyte Esterase Neg Urine RBC 1-2 /HPF Urine WBC Rare /HPF Urine Squamous Epithelial Cells Few /LPF Urine Bacteria 0 /HPF Bedside Urine HCG, Qualitative hcg negative Current Medications Medications (Trade) Dose Ordered Sig/Iqra Route PRN Reason Start Time Stop Time Status Last Admin Dose Admin Multi-Ingredient Mouthwash/Gargle (Gi Cocktail) 20 ml 1X ONCE PO 04/06/21 09:00 04/06/21 09:06 DC Pantoprazole Sodium (Protonix) 40 mg 1X ONCE PO 04/06/21 09:00 04/06/21 09:06 DC Metoclopramide HCl (Reglan) 10 mg 1X ONCE PO 04/06/21 09:30 04/06/21 09:32 DC EKG EKG [] Radiology/Procedures Radiology/Procedures [] Heart Score C/O Chest Pain: No Risk Factors: Risk Factors: DM, Current or recent (<one month) smoker, HTN, HLP, family history of CAD, obesity. Risk Scores: Risk Factors: DM, Current or recent (<one month) smoker, HTN, HLP, family history of CAD, obesity. Course & Med Decision Making Course & Med Decision Making ABCs unremarkable HPI and comprehensive physical exam nonconcerning for any emergent or surgical issues Patient had recent comprehensive work-up. Symptoms improved with provided ER intervention. I disclosed no indication for further diagnostic ER workup, intervention, or hospitalization at this time based on unremarkable physical exam Joint decision made to discharge home with supportive care practices and close PCP follow-up for further work-up as needed Dragon Disclaimer Dragon Disclaimer This electronic medical record was generated, in whole or in part, using a voice recognition dictation system. Departure Departure: Impression: Primary Impression: Abdominal pain Disposition: HOME / SELF CARE / HOMELESS Condition: STABLE Referrals: PCP,NO (PCP) Additional Instructions: You have been evaluated in the Emergency Department today for abdominal pain. Your evaluation was not suggestive of any emergent condition requiring medical intervention at this time. However, some abdominal problems make take more time to appear. Therefore, it is important for you to watch for any new symptoms or worsening of your current condition. As discussed prior to ER departure, close PCP follow-up is advise as repeat outpatient evaluation within upcoming 72 hours and consideration for GI consultation is recommended I discussed most likely diagnosis of GERD versus constipation and so, please avoid fatty and spicy foods and highly caffeinated beverages. You should also start taking a daily stool softener with increased fiber and good fluid intake Return to the Emergency Department if you experience worsening pain, persistent fevers greater than 100.4, recurrent vomiting, blood in vomit, blood in stool, dark tarry stool, chest pain, difficulty breathing, or any other concerning sym ptoms. KAIN BARRETO DO Apr 06, 2021 08:32
[2021-04-06 08:56] VITALS: BP 153/87
[2021-04-06] MEDS ORDERED: LIDO:MAALOX 1:1 20 ML SINGLE DOSE. PO ONE (09:00)
[2021-04-06] MEDS ORDERED: PANTOPRAZOLE 40 MG TABLET. PO ONE (09:00)
[2021-04-06] MEDS ORDERED: METOCLOPRAMIDE 10 MG TABLET PO ONE (09:30)
[2021-04-06 09:47] LABS: BACTERIA,URINE 0 /HPF (0-FEW); BILIRUBIN,URINE NEG (NEG); CLARITY,URINE CLEAR; COLOR,URINE YELLOW; GLUCOSE,URINE NEG (NEG); NITRITE,URINE NEG (NEG); SQUAMOUS EPITHELIAL CELL,UR FEW /LPF; UROBILINOGEN,URINE 0.2 mg/dL (0.2 mg/dL); WBC,URINE RARE /HPF (0-4)
== END 2021-04-06 10:42 | disposition home or self-care (01) ==
LOC: ER 08:21
DX: R10.84 Generalized abdominal pain (principal); R10.12 Left upper quadrant pain; R10.13 Epigastric pain; G89.29 Other chronic pain
CPT/HCPCS: 81001; 81025; 99283

== ENCOUNTER → 2021-08-19 | Outpatient (CLI) | payer OTHER ==
[2021-08-19 14:41] LABS: BASO % 0 % (0-3); EOS % 1 % (0-3); HEMATOCRIT 38.1 % (36.0-47.0); HEMOGLOBIN 13.1 g/dL (12.0-15.5); LYMPH % 22 % (24-48); MEAN CORPUSCULAR HEMOGLOBIN 32 pg (25-35); MEAN CORPUSCULAR HGB CONC 34 g/dL (31-37); MEAN CORPUSCULAR VOLUME 94 fL (79-100); MONO # 0.6 x10^3/uL (0.0-1.1); MONO % 7 % (0-9); NEUT # 6.8 x10^3uL (1.8-7.7); NEUT % 71 % (31-73); PLATELET COUNT 291 x10^3/uL (140-400); RED BLOOD COUNT 4.08 x10^6/uL (3.50-5.40); RED CELL DISTRIBUTION WIDTH 13.7 % (11.5-14.5); WHITE BLOOD COUNT 9.5 x10^3/uL (4.0-11.0)
[2021-08-20 08:21] LABS: RUBELLA IGG ANTIBODY 4.45 index (Immune >0.99)
== END ==
LOC: LAB 13:39
PROVIDERS: ATTEND Obstetrics & Gynecology
DX: Z34.91 Encounter for supervision of normal pregnancy, unspecified, first trimester (principal)
CPT/HCPCS: 36415; 85025; 85660; 86592; 86703; 86762; 86787; 86803; 86850; 86900; 86901; 87340